=== PATIENT | female | born 1990 | race Two or more races ===

== ENCOUNTER 2022-05-08 17:06 | Observation (INO) | payer MEDICAID ==
[~2022-05-08] VITALS: Ht 162.6 cm; Wt 79.4 kg
[2022-05-08] MEDS ORDERED: LACTATED RINGER'S 1,000 ML IV ONE (18:00)
[2022-05-08] MEDS ORDERED: BETAMETHASONE ACET (30mg/5ml) 5ml Vial 6mg/ml IM ONE (18:00)
[2022-05-08] MEDS ORDERED: TERBUTALINE SULFATE 1 MG/ML 1ML VIAL SC SCH (20:15)
[2022-05-08] MEDS ORDERED: PREN1TAB71 OR (20:48)
[2022-05-08] MEDS ORDERED: NIF10C PO (21:15)
== END 2022-05-08 21:45 | disposition home or self-care (01) ==
LOC: LDRP 17:06
PROVIDERS: ADMIT Obstetrics & Gynecology Obstetrics; ATTEND Obstetrics & Gynecology Obstetrics
DX: O60.03 Preterm labor without delivery, third trimester (principal); Z20.822 Contact with and (suspected) exposure to COVID-19; O46.93 Antepartum hemorrhage, unspecified, third trimester; Z3A.35 35 weeks gestation of pregnancy
CPT/HCPCS: 36415; 59025; 76815; 81002; 87426; 94760; 96360; 96361; 96372; G0378; J0702; J3105

== ENCOUNTER 2022-05-09 18:50 | Observation (INO) | payer MEDICAID ==
[~2022-05-09] VITALS: Ht 162.6 cm; Wt 78.9 kg
[~2022-05-09 18:50] MED LIST: NIF10C PO; PREN1TAB71 OR
[2022-05-09] MEDS ORDERED: BETAMETHASONE ACET (30mg/5ml) 5ml Vial 6mg/ml IM ONE (19:30)
== END 2022-05-09 20:20 | disposition home or self-care (01) ==
LOC: LDRP 18:50
PROVIDERS: ADMIT Obstetrics & Gynecology; ATTEND Obstetrics & Gynecology
DX: O60.03 Preterm labor without delivery, third trimester (principal); Z3A.36 36 weeks gestation of pregnancy
CPT/HCPCS: 59025; 81002; 96372; G0378

== ENCOUNTER 2022-05-22 03:30 | Inpatient (IN) | payer MEDICAID ==
[~2022-05-22] VITALS: Ht 162.6 cm; Wt 80.7 kg
[2022-05-22] MEDS ORDERED: PROMETHAZINE HCL 25 MG/ML 1ML IV PRN (04:00)
[2022-05-22] MEDS ORDERED: PROMETHAZINE HCL 25 MG/ML 1ML IM PRN (04:00)
[2022-05-22] MEDS ORDERED: DERMOPLAST 60ML BOTTLE TOP PRN (04:00)
[2022-05-22] MEDS ORDERED: WITCH HAZEL-GLYCERIN PAD TOP PRN (04:00)
[2022-05-22] MEDS ORDERED: LIDOCAINE 2%HCL (LOCAL ANESTH.) INJ 10ml MDV IJ PRN (04:00)
[2022-05-22] MEDS ORDERED: PHISODERM TOP SOLN 240ML BTL TOP PRN (04:00)
[2022-05-22] MEDS ORDERED: BUTORPHANOL TARTRATE 2 MG/1 ML VIAL IV PRN ×2 (04:00)
[2022-05-22] MEDS: LACTATED RINGER'S 1,000 ML IV SCH ×2 (04:00→12:00)
[2022-05-22 04:37] LABS: Basophils # (auto) 0.1 10 ^3/uL (0-0.2); Eosinophils # (auto) 0 10 ^3/uL (0-0.8); Lymphocytes # (auto) 2.3 10 ^3/uL (0.4-5.4)
[2022-05-22 04:39] LABS: Basophils % (auto) 0.9 % (0.0-2.0); Eosinophils % (auto) 0.4 % (0.0-7.0); Hematocrit 31.7 % (36.0-46.0); Hemoglobin 10.8 g/dL (12.2-16.2); Mean Corpuscular Hemoglobin 25.9 pg (28.0-32.0); Mean Corpuscular Volume 76.3 fL (80.0-100.0); Monocytes # (auto) 0.5 10 ^3/uL (0-1.3); Monocytes % (auto) 6.2 % (0.0-12.0); Neutrophils # (auto) 5.6 10 ^3/uL (1.6-8.6); Neutrophils % (auto) 65.5 % (37.0-80.0); Red Blood Cells 4.15 10^6/uL (4.0-5.20); Red Cell Distribution Width 15.8 % (11.8-14.3); White Blood Cell 8.6 10^3/uL (4.4-10.8)
[2022-05-22 04:56] LABS: Albumin 2.3 g/dL (3.4-5.0); Calcium 8.7 mg/dL (8.5-10.1); Potassium 3.9 mmol/L (3.5-5.1); Uric Acid 3.8 mg/dL (2.6-6.0)
[2022-05-22 04:59] LABS: BUN/Creatinine Ratio 13.3; Bilirubin, Total 0.2 mg/dL (0.2-1.0); Total Protein 7.1 g/dL (6.4-8.2)
[2022-05-22 04:59] LABS: Alcohol, Urine < 3.0 mg/dL (0-10); Amphetamine Screen, Urine NEGATIVE (NEGATIVE); Barbiturate Scree,Urine NEGATIVE (NEGATIVE); Benzodiazephine Screen, Urine NEGATIVE (NEGATIVE); Cannabinoid Screen, Urine NEGATIVE (NEGATIVE); Cocaine Screen, Urine NEGATIVE (NEGATIVE); Opiate Scree,Urine NEGATIVE (NEGATIVE); Phencyclidine Screen, Urine NEGATIVE (NEGATIVE); Urine Blood 1+ /uL (Negative); Urine Specific Gravity 1.011 (1.001-1.035)
[2022-05-22] MEDS ORDERED: LACT. RINGERS/OXYTOCIN 20UNITS 500 ML IV ONE ×2 (05:00→05:30)
[2022-05-22 05:02] LABS: INR 0.89 (0.9-1.15); Partial Thromboplastin Time 24.6 sec (24.6-33.4)
[2022-05-22 05:03] LABS: Urine Bacteria FEW /hpf (None Seen); Urine Blood 1+ /uL (Negative); Urine Mucus FEW (None Seen); Urine Specific Gravity 1.011 (1.001-1.035); Urine WBC 8 /hpf (0 - 5)
[2022-05-22] MEDS ORDERED: ePHEDrine SULFATE 50 MG/ML AMP IV ONE (07:15)
[2022-05-22] MEDS ORDERED: fentaNYL CITRATE 100 MCG/2 ML VL IV ONE (07:15)
[2022-05-22] MEDS ORDERED: LACTATED RINGER'S 1,000 ML IV ONE (07:15)
[2022-05-22] MEDS ORDERED: LIDOCAINE HCL 2 %PF INJ 10ML AMP IJ ONE (07:15)
[2022-05-22] MEDS ORDERED: ROPIVACAINE HCL 200 ML EPI SCH (07:15)
[2022-05-22] MEDS ORDERED: NALOXONE HCL 0.4 MG/ML VIAL IV ONE (07:15)
[2022-05-22] MEDS ORDERED: TERBUTALINE SULFATE 1 MG/ML 1ML VIAL SC PRN (07:30)
[2022-05-22] MEDS ORDERED: LACT. RINGERS/OXYTOCIN 20UNITS 1,000 ML IV SCH (07:30)
[2022-05-22] MEDS ORDERED: Lidocaine W-Epinephrine 1.5%-1:200,000 INJ 10ml Vial ONE (08:30)
[2022-05-22] MEDS ORDERED: METHYLERGONOVINE MALEATE 0.2 MG/ML AMP IM ONE ×2 (10:03→10:18)
[2022-05-22] MEDS ORDERED: ONDANSETRON ODT 4 MG TAB PO PRN (10:45)
[2022-05-22 15:00] VITALS: BP 118/76
[2022-05-22] MEDS ORDERED: RHO (D) IMMUNE GLOBULIN 300 MCG INJ IM ONE (17:00)
[2022-05-22] MEDS: IBUPROFEN 600 MG TAB PO PRN ×2 (17:20→23:55)
[2022-05-22 19:00] VITALS: BP 115/68
[2022-05-22] MEDS: DOCUSATE SOD 100 MG CAP PO SCH (22:41)
[2022-05-22] MEDS: ACETAMINOPHEN 325 MG TAB PO PRN (22:41)
[2022-05-22 23:00] VITALS: BP 127/73
[2022-05-23 03:00] VITALS: BP 107/63
[2022-05-23 05:06] LABS: RPR Non Reactive (Non Reactive)
[2022-05-23 06:06] LABS: Rubella Antibodies, IgG 1.59 index (Immune >0.99)
[2022-05-23 07:00] VITALS: BP 123/81
[2022-05-23] MEDS: IBUPROFEN 600 MG TAB PO PRN ×2 (10:53→19:39)
[2022-05-23 11:00] VITALS: BP 109/68
[2022-05-23] MEDS: ACETAMINOPHEN 325 MG TAB PO PRN ×2 (13:33→23:41)
[2022-05-23 15:00] VITALS: BP 115/68
[2022-05-23 18:45] LABS: Basophils # (auto) 0.1 10 ^3/uL (0-0.2); Eosinophils # (auto) 0 10 ^3/uL (0-0.8); Lymphocytes # (auto) 2.4 10 ^3/uL (0.4-5.4)
[2022-05-23 18:46] LABS: Basophils % (auto) 0.4 % (0.0-2.0); Eosinophils % (auto) 0.3 % (0.0-7.0); Hemoglobin 9.5 g/dL (12.2-16.2); Mean Corpuscular Hemoglobin 24.8 pg (28.0-32.0); Mean Corpuscular Hgb Conc. 31.7 g/dL (32.0-36.0); Mean Corpuscular Volume 78.3 fL (80.0-100.0); Monocytes # (auto) 0.5 10 ^3/uL (0-1.3); Monocytes % (auto) 3.8 % (0.0-12.0); Neutrophils # (auto) 9.1 10 ^3/uL (1.6-8.6); Neutrophils % (auto) 75.5 % (37.0-80.0); Nucleated Red Blood Cells % 0.1 %; Red Blood Cells 3.83 10^6/uL (4.0-5.20); Red Cell Distribution Width 16.2 % (11.8-14.3)
[2022-05-23 19:15] VITALS: BP 120/73
[2022-05-23 23:00] VITALS: BP 104/68
[2022-05-23] MEDS: DOCUSATE SOD 100 MG CAP PO SCH (23:40)
[2022-05-24 03:07] VITALS: BP 112/72
[2022-05-24] MEDS: IBUPROFEN 600 MG TAB PO PRN (03:08)
[2022-05-24 07:00] VITALS: BP 111/73
[2022-05-24 09:09] VITALS: BP 111/78
== END 2022-05-24 09:10 | disposition home or self-care (01) | DRG 560 ==
LOC: LDRP 03:30 → OBSVTOIN 03:30 → LDRP 03:44
PROVIDERS: ADMIT Obstetrics & Gynecology; ATTEND Obstetrics & Gynecology
PROC: 10E0XZZ Delivery of Products of Conception, External Approach (ICD-10-PCS; principal; 2022-05-22)
PROC: 0KQM0ZZ Repair Perineum Muscle, Open Approach (ICD-10-PCS; 2022-05-22)
PROC: 3E0R3BZ Introduction of Anesthetic Agent into Spinal Canal, Percutaneous Approach (ICD-10-PCS; 2022-05-22)
PROC: 00HU33Z Insertion of Infusion Device into Spinal Canal, Percutaneous Approach (ICD-10-PCS; 2022-05-22)
PROC: 3E0234Z Introduction of Serum, Toxoid and Vaccine into Muscle, Percutaneous Approach (ICD-10-PCS; 2022-05-23)
DX: O69.81X0 Labor and delivery complicated by cord around neck, without compression, not applicable or unspecified (principal); Z37.0 Single live birth; O26.893 Other specified pregnancy related conditions, third trimester; O70.1 Second degree perineal laceration during delivery; Z3A.37 37 weeks gestation of pregnancy; Z67.11 Type A blood, Rh negative; Z20.822 Contact with and (suspected) exposure to COVID-19
CPT/HCPCS: 36415; 59025; 59409; 62282; 76805; 80053; 80307; 81001; 81002; 81003; 84112; 84550; 85025; 85384; 85610; 85730; 86592; 86703; 86762; 86850; 86900; 86901; 87086; 87340; 90384; 94760; 96360; 96361; 96365; 96366; 96372; G0378; J2590